=== PATIENT | male | born 1950 | race Two or more races ===

== ENCOUNTER → 2018-03-18 | Outpatient (CLI) | payer OTHER ==
[2018-03-18 12:29] LABS: PLATELET COUNT 199 10^3/uL (150-400)
--- NOTE | 2018-03-21 08:32 | CPEKG ---
Heart Rate: 48 RR Interval: 1250 P-R Interval: 192 QRSD Interval: 162 QT Interval: 544 QTC Interval: 487 P Ber[place]: 48 QRS Ber[place]: -8 T Wave Ber[place]: 15 EKG Severity - ABNORMAL ECG - EKG Impression: SINUS BRADYCARDIA EKG Impression: RIGHT BUNDLE BRANCH BLOCK Electronically Signed By: Td Brady 21-Mar-2018 12:19:27
== END ==
LOC: FPAT 11:46
PROVIDERS: ATTEND Orthopaedic Surgery
DX: Z01.810 Encounter for preprocedural cardiovascular examination (principal); Z01.812 Encounter for preprocedural laboratory examination